=== PATIENT | female | born 1970 | race Caucasian/White ===

== ENCOUNTER 2016-09-01 10:16 | Emergency (ER) | payer MEDICARE, MEDICAID ==
[~2016-09-01] VITALS: Ht 165.1 cm; Wt 62.7 kg
[~2016-09-01 10:16] MED LIST: ACET325T51 PO; ASCO500C6 PO; BISA10EN RC; CLOT30SO TP; DIAZ10TA3 PO; DOCU50CA7 PO; DOXY100T2 PO; ERYT1OIN7 AFFECT_EYE; EUCA50OI5 TP; FIBERCON PO; IBUP800T28 PO; LAMO100T PO; LORA10CA PO; MUPI15CR TOPICAL; MV,C1TAB15 PO; TOPI200T17 PO
[2016-09-01 10:22] VITALS: PULSE 106; RESP 20; O2SAT 100
--- NOTE | 2016-09-01 10:32 | ED.REPORT ---
HPI-Abd Pain F 40 and Over Date of Service Sep 01, 2016 ED Provider: Dr. Higgins Pt is a 46 year old female with a hx of a developmental disability, seizures, and bowel health issues accompanied by her caregivers presenting to the ED complaining of constipation. She has not had a BM in 6 days, she does have a hx of constipation but usually only lasting for about 3-4 days. She was given a suppository yesterday, but has still not had a BM, and then today the suppository fell out unabsorbed. Denies fever, vomiting, change in appetite, feeling sick over the past few days. Nursing Notes Stated Complaint: NO BM 6 DAYS Chief Complaint: Female Abdominal Pain Nursing Notes Reviewed: Yes Allergies: Coded Allergies: ciprofloxacin (Verified Allergy, Intermediate, rash, 09/01/16) Scheduled ([Fibercon]) 625 MG PO BID Ascorbic Acid (Vitamin C) 500 Mg Capsule.er 500 MG PO BID Bisacodyl (Dulcolax) 5 Mg Tablet.dr 10 MG PO BID Doxycycline Hyclate (Doxycycline Hyclate) 100 Mg Tablet 0.5 MG PO DAILYWD Erythromycin Ophth Oint (Erythromycin Ophth Oint) 3.5 Gm Oint...g. 1 APPL AFFECT _EYE DAILY Eucalyptus Oil/Menthol/Camphor (Vicks Vaporub Ointment) 50 Gm Oint...g. 50 GM TP DAILY to toenails Lamotrigine (Lamictal) 100 Mg Tablet 2.5 TAB PO BID 8AM and 8PM Mupirocin Cream (Bactroban Cream) 15 Gm Cream..g. 1 APPLIC TOPICAL BID Mv,Ca,Min/Iron Fum/FA/Lyco/Lut (Sentry Multivit & Mineral Cplt) 1 Each Tablet 1 EACH PO DAILY Sodium,Potassium,&Mag Sulfates (Suprep Bowel Prep Kit) 354 Ml Soln.recon 354 ML PO ONCE Topiramate (Topamax) 200 Mg Tablet 200 MG PO BID 8 AM and 8PM Scheduled PRN Acetaminophen (Acetaminophen) 325 Mg Tablet 325 MG PO Q6H PRN PRN For Fever Bisacodyl (Bisacodyl Rectal) 10 Mg/30 Ml Enema 10 MG RC PRN PRN PRN For Constipation Clotrimazole 1% (Clotrimazole 1%) 30 Ml Solution 30 ML TP DAILY PRN PRN prn Diazepam (Diazepam) 10 Mg Tablet 2 TAB PO DAILY PRN PRN For Anxiety 1 hour prior to dental appt Docusate Sodium (Docusate Sodium) 50 Mg Capsule 100 MG PO BID PRN PRN For Constipation Ibuprofen (Ibuprofen) 800 Mg Tablet 800 MG PO Q6H PRN PRN For Pain Loratadine (Claritin) 10 Mg Capsule 10 MG PO DAILY PRN PRN prn General Time Seen by MD: 10:31 Chief Complaint Constipation Hx Obtained From: Mailing Machine Helper Arrived By: Walk-in Sudden in Onset?: No Onset Occurred: 6 days ago Symptom Duration: Since onset Progression since Onset: Unchanged Severity: Current: No pain currently Severity: Maximum: No pain Associated with: Reports: Constipation, Denies: Fever, Vomiting Recent Healthcare: No recent doctor visit, No recent hospitalization Similar Sx Previous: Yes Past Medical History Past Medical History Autism- nonverbal Seizures Bowel health issues Past Surgical History none Smoking History Never Smoker Social History Alcohol Use: Denies alcohol use Drug Use: Denies drug use Ambulatory Status Independent Review of Systems Constitutional: Denies: Fever GI: Reports: Constipation, Denies: Vomiting Complete sys rev & neg: except as marked. Physical Exam Vital Signs Vital Signs (First) Date Time Temp Pulse Resp B/P Pulse Ox O2 Delivery O2 Flow Rate FiO2 09/01/16 10:22 36.1 106 20 100 Room Air Initial VS: Reviewed Head / Eyes: Atraumatic, Normocephalic, PERRL ENT: Mucous membranes moist, Conjunctiva normal, No scleral icterus Extremities: Vascular intact, Neuro intact, No swelling, No tenderness Skin: Warm, Dry, No cyanosis Neurologic: Alert, Oriented, Nonfocal Psychiatric: Mood/affect normal, Behavior normal, Normal thought content General/Constitutional: Awake, Alert, Well appearing Respiratory / Chest: No respiratory distress Cardiovascular: Heart rate NL, Regular rhythm, Heart sounds NL, Peripheral circulation NL Strong radial pulses Rectum / Perineum: Atraumatic No fecal impaction. No stool present. Re-Eval/Medical Decision Re-Evaluation/Progress : Time of Eval: 10:43 Patient Status: Condition improved Re-Evaluation/Progress Note: Discussed plan for discharge. Caregivers understand and agree. Counseled Regarding: Diagnosis, Lab results, Need for follow-up, When/why to return to ED Discharge & Departure Primary Impression: Constipation Constipation type: unspecified constipation type Qualified Code: K59.00 - Constipation, unspecified Disposition: Home Discharge Condition All VS Reviewed: Yes Condition: Improved Patient Instructions: Constipation (ED) Additional Instructions: Today, give 2 tablets of Ducosate and then again tonight if she does not have a bowel movement, also give her 1 tablespoon of mineral oil mixed with pudding or another food product. Tomorrow, September 02, if no bowel movement, I recommend 8 ounces of magnesium citrate mixed in whatever other liquid you like. If this is not effective I recommend: September 03: Suprep as prescribed though there is no need to drink it as quickly as it is recommended in the package instructions. Referrals: Senia Edward (PCP) Scribe Attestation Portions of this note were transcribed by Gamal Florian. I, Dr. Higgins personally performed the history, physical exam and medical decision-making; I reviewed and confirmed the accuracy of the information in the transcribed note. Signed by: Nadja Aguirre, 09/01/2016 and 1113. copies to: Senia Edward Kirk H MD Sep 01, 2016 10:32 GAMAL FLORIAN Sep 01, 2016 10:44
[2016-09-01] MEDS ORDERED: SODI354S PO (11:12)
[2016-09-01] MEDS ORDERED: BISA-67 PO (11:12)
[2016-09-01 11:45] VITALS: PULSE 106; RESP 20; O2SAT 100
== END 2016-09-01 11:13 | disposition home or self-care (01) ==
LOC: SED 10:16
DX: K59.00 Constipation, unspecified (principal); Z88.1 Allergy status to other antibiotic agents

== ENCOUNTER 2017-03-19 19:28 | Emergency (ER) | payer MEDICARE, MEDICAID ==
[~2017-03-19] VITALS: Ht 152.4 cm; Wt 58.0 kg
[~2017-03-19 19:28] MED LIST changes: +BISA-67 PO; +SODI354S PO
[2017-03-19 19:35] VITALS: PULSE 91; RESP 18; O2SAT 100
--- NOTE | 2017-03-19 20:17 | DRSVH ---
PROCEDURE: X-RAY FINGERS, TWO VIEWS RIGHT INDICATIONS: Right 5th finger pain TECHNIQUE: AP hand, 2 views of the fifth finger(s) acquired. COMPARISON: [facility], CR, XR HAND 3VW RT, 03/19/2017, 17:41. FINDINGS: Bones: Minimally displaced proximal fifth phalanx fracture, unchanged. There is a persistent appearan ce of dislocation of the fifth IP joint, unchanged compared to prior exam. Soft tissues: No suspicious soft tissue calcifications. IMPRESSION: Unchanged appearance of fifth digit fracture dislocation. Dictated by: Eloisa Lama M.D. on 03/19/2017 at 20:14 Approved by: Eloisa Lama M.D. on 03/19/2017 at 20:15
[2017-03-19] MEDS ORDERED: HYDROcodone-APAP 10-325 mg PO ONE (20:30)
--- NOTE | 2017-03-19 20:36 | ED.REPORT ---
HPI-Extremity Problem Upper Date of Service Mar 19, 2017 ED Provider: Edson Duarte DO The pt is a 46 y/o female with hx of autism, seizures, "depth perception problem " and profound mental retardation who is brought to the ED by her inseminator from due to right fifth finger pain. The pt has an unstable gait at baseline and lost her balance while walking to her chair. She caught her fall with her right hand, but did not cry initially. The pt was able to eat food with her hands. Her right fifth finger started bruising and swelling two hours after the fall and she was unwilling to let others hold her hand, which she usually permits. Per pt's caretakers the pt began also biting her left hand, which she does when distressed. Per the caregiver, the pt has not been experiencing nausea or vomiting. Nursing Notes Stated Complaint: BROKEN RIGHT PINKY FINGER Chief Complaint: Extremity Trauma Nursing Notes Reviewed: Yes Allergies: Coded Allergies: ciprofloxacin (Verified Allergy, Intermediate, rash, 03/19/17) Scheduled ([Fibercon]) 625 MG PO BID Ascorbic Acid (Vitamin C) 500 Mg Capsule.er 500 MG PO BID Bisacodyl (Dulcolax) 5 Mg Tablet.dr 10 MG PO BID Doxycycline Hyclate (Doxycycline Hyclate) 100 Mg Tablet 0.5 MG PO DAILYWD Erythromycin Ophth Oint (Erythromycin Ophth Oint) 3.5 Gm Oint...g. 1 APPL AFFECT _EYE DAILY Eucalyptus Oil/Menthol/Camphor (Vicks Vaporub Ointment) 50 Gm Oint...g. 50 GM TP DAILY to toenails Lamotrigine (Lamictal) 100 Mg Tablet 2.5 TAB PO BID 8AM and 8PM Mupirocin Cream (Bactroban Cream) 15 Gm Cream..g. 1 APPLIC TOPICAL BID Mv,Ca,Min/Iron Fum/FA/Lyco/Lut (Sentry Multivit & Mineral Cplt) 1 Each Tablet 1 EACH PO DAILY Sodium,Potassium,&Mag Sulfates (Suprep Bowel Prep Kit) 354 Ml Soln.recon 354 ML PO ONCE Topiramate (Topamax) 200 Mg Tablet 200 MG PO BID 8 AM and 8PM Scheduled PRN Acetaminophen (Acetaminophen) 325 Mg Tablet 325 MG PO Q6H PRN PRN For Fever Bisacodyl (Bisacodyl Rectal) 10 Mg/30 Ml Enema 10 MG RC PRN PRN PRN For Constipation Clotrimazole 1% (Clotrimazole 1%) 30 Ml Solution 30 ML TP DAILY PRN PRN prn Diazepam (Diazepam) 10 Mg Tablet 2 TAB PO DAILY PRN PRN For Anxiety 1 hour prior to dental appt Docusate Sodium (Docusate Sodium) 50 Mg Capsule 100 MG PO BID PRN PRN For Constipation Ibuprofen (Ibuprofen) 800 Mg Tablet 800 MG PO Q6H PRN PRN For Pain Ibuprofen (Ibuprofen) 800 Mg Tablet 800 MG PO TID PRN PRN For Pain Loratadine (Claritin) 10 Mg Capsule 10 MG PO DAILY PRN PRN prn General Time Seen by MD: 19:40 Chief Complaint Finger injury right 5 Hx Obtained From: Vascular Ultrasound Technician Arrived By: Walk-in Onset Occurred: 1 - 4 hours ago Symptom Duration: Since onset Caused by: Fall on ground Location: : Finger right 5 Quality: Painful Recent Healthcare: No recent hospitalization, Recent doctor visit Similar Sx Previous: No Past Medical History Past Medical History Autism- nonverbal Seizures Bowel health issues Scoliosis Profound mental retardation "depth perception problem" Past Surgical History none Family History unknown Smoking History Never Smoker Social History Lives at [facility] with a inseminator Alcohol Use: Denies alcohol use Drug Use: Denies drug use Ambulatory Status Independent Review of Systems Unable to Obtain ROS Mental status Physical Exam Initial Vital Signs Vital Signs (First) Date Time Temp Pulse Resp B/P Pulse Ox O2 Delivery O2 Flow Rate FiO2 03/19/17 19:35 36.2 91 18 100 Room Air 03/19/17 21:34 123/68 Initial VS: Reviewed Head / Eyes: Atraumatic, Normocephalic, PERRL Neck: Supple, Full range of motion Respiratory: Breath sounds normal, Clear to auscultation, No respiratory distress Cardiovascular: Regular rate & rhythm, Heart sounds normal, Intact distal pulses Skin: Warm, Dry, No cyanosis General/Constitutional: Awake, Alert Upper Extremity / MS: Neurologic intact, Vascular intact Trauma / Burn / Environmental: Positive: Bite injury (L hand; self-inflicted secondary to her distress), Contusion (base of R 5th finger) 5th distal finger of the R is neurovascularly intact pre- and post-procedure Head / Eyes: Atraumatic, Normocephalic, PERRL, EOMI No deformity No bruising ENT: Atraumatic, Airway patent, Mucous membranes moist Abdomen: Atraumatic, Soft Interpretation & Diagnostics X-Ray Interpretation Xray Interpretation: FINGERS, TWO VIEWS RIGHT IMPRESSION: Unchanged appearance of fifth digit fracture dislocation. Dictated by: Eloisa Lama M.D. on 03/19/2017 at 20:14 X-Ray Ordered: Hand right Interpretation / Wet Read by: Interpret - Radiologist Xray Interpretation: POST REDUCTION X-RAY Successful reduction X-Ray Ordered: Hand right Interpretation / Wet Read by: Wet read ED physician Procedures Proced Mod Sedation/Analgesia No previous issues with sedation. MD left at 22:34, RT still in attendance. Time: 22:16 Procedure Performed by: ED physician Sedation Time: 16 - 30 min Consent / Setup: Informed consent provided, Consent from inseminator, Time-out performed, Hand hygiene observed, Stand sterile technique Indication: Fracture reduction, Other (finger dislocation reduction) Preparation: quality assurance monitor body applied, Pulse oximeter applied, Constant attendance, IV access established, Eval last meal time, Supplemental oxygen, Procedure explained, Suction available, End tidal CO2 mon applied VS Prior to Procedure: All vital signs normal, O2 saturation normal, Blood pressure normal, Heart Rate normal, Respiratory rate normal Mallampati: Class & Anatomy: 1 tonsils/uvula/s palate Airway Exam: Normal facial anatomy, Normal neck anatomy, Normal anatomy CVS/Resp Exam: Normal breath sounds, Normal heart sounds Neuro Exam: Alert, Anxious Sedation: Sedation: Propofol ASA Classification: 1 normal healthy patient Response During Procedure: Handled secretions adeq, Maintained airway well, Oxygenation stable, Sedation appropriate, Vital signs stable Complications During/After: None Reversal: None required Mental Status After Procedure: Alert, At patient's baseline Post-Procedure: Ambulatory with assist, Pt rtn pre-proc baseline, Vital signs normal Reduction Finger Time: 22:18 Procedure Performed by: ED physician Consent / Setup / Site Prep: Informed consent provided, Consent from inseminator , Time-out performed, Oxygen administered, Pulse oximeter applied, quality assurance monitor body applied, Hand hygiene observed, Stand sterile technique, Standard surgical scrub, Sterile drapes applied Finger / Joint Involved: PIP, Right 5 Procedural Sedation/Analgesia: Sedation: Propofol Post-Procedure / Complications: Procedure successful, X-ray confirms reduction , No complications, Tolerated procedure well, Patient stable Re-Eval/Medical Decision Source of Hx: Old records Re-Evaluation/Progress #1: Time of Eval: 22:05 Re-Evaluation/Progress Note: Pt rechecked. IV is inserted to prepare for sedation. Re-Evaluation/Progress #2: Time of Eval: 22:16 Re-Evaluation/Progress Note: Sedation and finger reduction performed without complication. Re-Evaluation/Progress #3: Time of Eval: 22:55 Re-Evaluation/Progress Note: Pt rechecked. Informed pt's caregiver of diagnosis and plan for discharge. The pt's caregiver understands and agrees with plan for discharge. F/U instructions and RTER warnings given. All questions addressed at this time. Counseled Regarding: Diagnosis, Lab results, Need for follow-up, When/why to return to ED Discharge & Departure Impression: Primary Impression: Finger fracture, right Encounter type: initial encounter Fracture type: closed Qualified Code: S62.609A - Fracture of unspecified phalanx of unspecified finger, initial encounter for closed fracture Additional Impressions: Dislocation, finger closed Encounter type: initial encounter Qualified Code: S63.259A - Unspecified dislocation of unspecified finger, initial encounter Fall from ground level Agitation Autism Disposition: Home Discharge Condition All VS Reviewed: Yes Condition: Stable Patient Instructions: Finger Dislocation (ED), Finger Fracture (GEN), Splint Care (ED) Additional Instructions: Lucys evaluation today revealed a fracture and dislocation of her right fifth finger. This was corrected with a reduction procedure requiring conscious sedation. She should follow-up with orthopedic hand specialist, Dr. Lee Salomon, and your primary care physician within 1 week. Please call for an appointment. Use ibuprofen 800 mg 3 times daily as needed for pain. Ice and elevate the area of fracture/pain. Return to the ER for new or worsening symptoms. Referrals: Segun Guadarrama DO (PCP) Lee Salomon DO Scribe Attestation Portions of this note were transcribed by Serafin Dumont and Priyank Rubio. I, Dr. Brian Duarte personally performed the history, physical exam and medical decision-making; I reviewed and confirmed the accuracy of the information in the transcribed note. Signed by: Serafin Rubio, Jacquieibe, 03/19/17. copies to: Lee Salomon DO; Segun Guadarrama Gary R DO Mar 19, 2017 20:36 Serafin Dumont Mar 19, 2017 21:34 PRIYANK RUBIO Mar 19, 2017 23:19
[2017-03-19 21:34] VITALS: BP 123/68; PULSE 88; RESP 20; O2SAT 99
[2017-03-19] MEDS ORDERED: Propofol 10 mg/mL 20 mL Inj IVPUSH ONE (22:10)
[2017-03-19 22:11] VITALS: BP 129/87; PULSE 88; RESP 16; O2SAT 99
[2017-03-19] MEDS ORDERED: IBUP800T28 PO (23:43)
[2017-03-19] MEDS ORDERED: _HYDROcodone/APAP 5-325 mg Tablet PO PRN ×2 (23:55)
[2017-03-20 00:44] VITALS: BP 107/74; PULSE 82; RESP 19; O2SAT 100
--- NOTE | 2017-03-20 08:25 | DRSVH ---
PROCEDURE: X-RAY RIGHT HAND, MINIMUM THREE VIEWS ([id number]) INDICATIONS: post reduction films TECHNIQUE: 3 views of the hand(s) acquired. COMPARISON: [facility], CR, XR HAND 3VW RT, 03/19/2017, 17:41. FINDINGS: Bones: There is improved alignment of dislocation of the PIP joint of the little finger, status post reduction. Oblique fracture through the base of the proximal phalanx of the little finger is again no angeli also in improved alignment. Soft tissues: No suspicious soft tissue calcifications. IMPRESSION: Improved alignment, status post reduction of dislocation of the PIP joint of the little f greg. Improved alignment of fracture involving the proximal phalanx of the little finger as above. Dictated by: Yonatan Hernandez M.D. on 03/20/2017 at 8:20 Approved by: Yonatan Hernandez M.D. on 03/20/2017 at 8:24
== END 2017-03-20 00:15 | disposition home or self-care (01) ==
LOC: SED 19:28
DX: S62.615A Displaced fracture of proximal phalanx of left ring finger, initial encounter for closed fracture (principal); W01.0XXA Fall on same level from slipping, tripping and stumbling without subsequent striking against object, initial encounter; Y93.01 Activity, walking, marching and hiking; Y99.8 Other external cause status; Y92.198 Other place in other specified residential institution as the place of occurrence of the external cause; F84.0 Autistic disorder; F79 Unspecified intellectual disabilities; Z86.69 Personal history of other diseases of the nervous system and sense organs; Z87.19 Personal history of other diseases of the digestive system; Z88.1 Allergy status to other antibiotic agents
CPT/HCPCS: 26725; 73130; 73140; 99156; 99284; J2704